=== PATIENT | male | born 1980 ===

== ENCOUNTER 2020-07-23 12:06 | Inpatient (IN) | payer MEDICAID ==
[~2020-07-23] VITALS: Ht 172.7 cm; Wt 113.4 kg
[~2020-07-23 12:06] MED LIST: AMLO-211 PO; DIVA-61 PO; DIVA500T17 PO; LISI5TAB7 PO; QUET100T PO; QUET25TA7 PO; RISP50DI IM; SIMV20TA19 PO; TRIA15CR61 TP
[2020-07-23 12:49] VITALS: BP 143/81
[2020-07-23] MEDS ORDERED: ACETAMINOPHEN 325 MG TABLET PO PRN (13:00)
[2020-07-23] MEDS ORDERED: ONDANSETRON ODT 4 MG PO PRN (13:00)
[2020-07-23] MEDS ORDERED: BISACODYL 10 MG SUPP PR PRN (13:00)
[2020-07-23] MEDS ORDERED: DOCUSATE 100 MG CAPSULE PO PRN (13:00)
[2020-07-23] MEDS ORDERED: POLYETHYLENE GLYCOL 17 GM PACKET PO PRN (13:00)
[2020-07-23] MEDS ORDERED: PLEASE ENTER HEIGHT AND WEIGHT MC SCH (13:00)
[2020-07-23] MEDS: NICOTINE 14MG/24 HR PATCH.TD24 TD SCH (14:04)
[2020-07-23 14:41] LABS: BASOPHILS % (AUTO) 1 % (0-1); EOSINOPHILS % (AUTO) 2 % (1-7); LYMPHOCYTES % (AUTO) 32 % (22-44); MEAN CORPUSCULAR HEMOGLOBIN 30.4 pg (27.5-34.5); MEAN CORPUSCULAR HGB CONC 34.2 g/dL (33.2-36.2); MEAN PLATELET VOLUME 8.1 fL (7.4-10.4); MONOCYTES % (AUTO) 10 % (2-9); NEUTROPHILS % (AUTO) 55 % (42-75); PLATELET COUNT 215 x10^3/uL (130-400); RED BLOOD COUNT 4.83 x10^6/uL (4.38-5.82); RED CELL DISTRIBUTION WIDTH 13.8 % (9.4-14.8)
[2020-07-23 14:43] LABS: MD NO
[2020-07-23 14:48] LABS: ALANINE AMINOTRANSFERASE 67 U/L (12-78); ALBUMIN 3.3 g/dL (3.4-5.0); ANION GAP 5 mmol/L (5-15); CALCIUM 8.3 mg/dL (8.5-10.1); CHLORIDE 109 mmol/L (98-107); CREATININE 0.83 mg/dL (0.7-1.3)
[2020-07-23 14:50] LABS: ALKALINE PHOSPHATASE 116 U/L (45-117); BILIRUBIN,TOTAL 0.6 mg/dL (0.2-1.0); TOTAL PROTEIN 6.6 g/dL (6.4-8.2)
[2020-07-23 19:36] VITALS: BP 171/99
[2020-07-23] MEDS ORDERED: QUETIAPINE 200 MG TABLET PO SCH (21:00)
[2020-07-23 22:35] VITALS: BP 158/91
[2020-07-24 05:50] VITALS: BP 127/83
[2020-07-24 06:53] LABS: FREE T4 (FREE THYROXINE) 1.1 ng/dL (0.76-1.46)
[2020-07-24 07:53] VITALS: BP 161/84
[2020-07-24 10:18] VITALS: BP 136/91
[2020-07-24] MEDS: AMLODIPINE 10 MG TAB PO SCH (10:33)
[2020-07-24] MEDS: NICOTINE 14MG/24 HR PATCH.TD24 TD SCH (10:34)
[2020-07-24 15:38] LABS: MICROSCOPIC NOT IND
[2020-07-24 19:57] VITALS: BP 157/94
[2020-07-24] MEDS: RISPERIDONE 1 MG TABLET PO SCH (20:01)
[2020-07-25 07:00] VITALS: BP 129/84
[2020-07-25] MEDS: RISPERIDONE 1 MG TABLET PO SCH ×2 (08:54→20:04)
[2020-07-25] MEDS: AMLODIPINE 10 MG TAB PO SCH (08:55)
[2020-07-25] MEDS: NICOTINE 14MG/24 HR PATCH.TD24 TD SCH (08:57)
[2020-07-25 20:01] VITALS: BP 147/90
[2020-07-25] MEDS: CARBAMAZEPINE 200 MG TABLET PO SCH (20:04)
[2020-07-26 07:29] VITALS: BP 147/88
[2020-07-26] MEDS: RISPERIDONE 1 MG TABLET PO SCH (09:15)
[2020-07-26] MEDS: CARBAMAZEPINE 200 MG TABLET PO SCH ×2 (09:15→20:08)
[2020-07-26] MEDS: NICOTINE 14MG/24 HR PATCH.TD24 TD SCH (09:15)
[2020-07-26] MEDS: AMLODIPINE 10 MG TAB PO SCH (09:15)
[2020-07-26 19:00] VITALS: BP 132/72
[2020-07-27 07:27] VITALS: BP 136/88
[2020-07-27] MEDS: AMLODIPINE 10 MG TAB PO SCH (08:17)
[2020-07-27] MEDS: NICOTINE 14MG/24 HR PATCH.TD24 TD SCH (08:17)
[2020-07-27] MEDS: CARBAMAZEPINE 200 MG TABLET PO SCH ×2 (08:17→21:01)
[2020-07-27] MEDS: PALIPERIDONE 6 MG TAB.ER.24 PO SCH (08:17)
[2020-07-27 19:22] VITALS: BP 111/72
[2020-07-28 07:34] VITALS: BP 109/67
[2020-07-28] MEDS: AMLODIPINE 10 MG TAB PO SCH (08:39)
[2020-07-28] MEDS: PALIPERIDONE 6 MG TAB.ER.24 PO SCH (08:40)
[2020-07-28] MEDS: CARBAMAZEPINE 200 MG TABLET PO SCH (08:40)
[2020-07-28] MEDS: NICOTINE 14MG/24 HR PATCH.TD24 TD SCH (08:42)
[2020-07-28] MEDS ORDERED: FLU VACC QS2020-21(6MOS UP)/PF 60MCG/0.5 ML SYR IM ONE (09:00)
[2020-07-28] MEDS ORDERED: AMLO-211 PO (10:53)
[2020-07-28] MEDS ORDERED: NICO-486 TD (10:54)
[2020-07-28] MEDS ORDERED: CARB200T4 PO (10:54)
[2020-07-28] MEDS ORDERED: PALI6TAB5 PO (10:54)
== END 2020-07-28 11:40 | disposition home or self-care (01) | DRG 750 ==
LOC: 3E 12:43
PROVIDERS: ADMIT Psychiatry & Neurology Psychosomatic Medicine; ATTEND Psychiatry & Neurology Psychosomatic Medicine
DX: F20.0 Paranoid schizophrenia (principal); E66.9 Obesity, unspecified; F17.200 Nicotine dependence, unspecified, uncomplicated; I10 Essential (primary) hypertension; K02.9 Dental caries, unspecified; Z68.38 Body mass index [BMI] 38.0-38.9, adult; Z79.899 Other long term (current) drug therapy; Z23 Encounter for immunization; Z72.89 Other problems related to lifestyle
CPT/HCPCS: 36415; 71045; 80053; 80061; 81003; 84439; 84443; 85025; 90686; 93005

== ENCOUNTER 2020-08-29 11:16 | Emergency (ER) | payer MEDICAID ==
[~2020-08-29] VITALS: Ht 177.8 cm; Wt 123.0 kg
[~2020-08-29 11:16] MED LIST changes: +CARB200T4 PO; +NICO-486 TD; +PALI6TAB5 PO
[2020-08-29 11:19] VITALS: BP 135/80
--- NOTE | 2020-08-29 11:35 | NUR ---
PT CAME IN CO OF RIGHT ANKLE/FOOT PAIN. PT STATES HE SLIPPED AND FELL ON SOME ICE. "I THINK ITS BROKEN"
[2020-08-29] MEDS ORDERED: OXYcodone/APAP 5/325MG TABLET ONE (11:42)
[2020-08-29] MEDS ORDERED: OXYcodone/APAP 5/325MG TABLET PO ONE (12:00)
== END 2020-08-29 13:41 | disposition home or self-care (01) ==
LOC: ED 13:07
DX: S82.844A Nondisplaced bimalleolar fracture of right lower leg, initial encounter for closed fracture (principal); S82.854A Nondisplaced trimalleolar fracture of right lower leg, initial encounter for closed fracture; W19.XXXA Unspecified fall, initial encounter; Y93.01 Activity, walking, marching and hiking; Y92.098 Other place in other non-institutional residence as the place of occurrence of the external cause; Y99.8 Other external cause status
CPT/HCPCS: 29505; 99284

== ENCOUNTER 2020-11-30 01:05 | Emergency (ER) | payer MEDICAID ==
[~2020-11-30] VITALS: Ht 180.3 cm; Wt 109.1 kg
[2020-11-30 01:12] VITALS: BP 157/101
== END 2020-11-30 01:50 | disposition home or self-care (01) ==
LOC: ED 01:48
DX: F22 Delusional disorders (principal)
CPT/HCPCS: 99283

== ENCOUNTER 2020-12-03 01:31 | Emergency (ER) | payer MEDICAID ==
[~2020-12-03] VITALS: Ht 180.3 cm; Wt 123.0 kg
[2020-12-03 01:46] VITALS: BP 143/87
--- NOTE | 2020-12-03 03:45 | NUR ---
PT AMBULATED TO ROOM. NO DISTRESS. MD TO BEDSIDE TO EVAL PT.
--- NOTE | 2020-12-03 04:15 | NUR ---
F/U AND D/C INSTRUCTIONS GIVEN TO PT AND HE V/U.
== END 2020-12-03 04:35 | disposition home or self-care (01) ==
LOC: ED 01:45
DX: Z00.00 Encounter for general adult medical examination without abnormal findings (principal)
CPT/HCPCS: 99281

== ENCOUNTER 2020-12-25 05:07 | Emergency (ER) | payer MEDICAID ==
[~2020-12-25] VITALS: Ht 175.3 cm; Wt 125.0 kg
[2020-12-25 05:20] VITALS: BP 160/87
== END 2020-12-25 06:06 | disposition home or self-care (01) ==
LOC: ED 06:00
DX: S80.211A Abrasion, right knee, initial encounter (principal); Z72.9 Problem related to lifestyle, unspecified; W01.0XXA Fall on same level from slipping, tripping and stumbling without subsequent striking against object, initial encounter; Y93.89 Activity, other specified; Y92.89 Other specified places as the place of occurrence of the external cause; Y99.8 Other external cause status
CPT/HCPCS: 99283

== ENCOUNTER 2020-12-27 02:58 | Emergency (ER) | payer MEDICAID ==
[~2020-12-27] VITALS: Ht 175.3 cm; Wt 127.0 kg
[2020-12-27] MEDS ORDERED: ZIPRASIDONE 20 MG INJ IM ONE ×2 (03:25→03:30)
[2020-12-27 03:34] LABS: BASOPHILS % (AUTO) 1 % (0-1); EOSINOPHILS % (AUTO) 3 % (1-7); LYMPHOCYTES % (AUTO) 30 % (22-44); MEAN CORPUSCULAR HEMOGLOBIN 30.5 pg (27.5-34.5); MEAN CORPUSCULAR HGB CONC 34.6 g/dL (33.2-36.2); MEAN PLATELET VOLUME 7.5 fL (7.4-10.4); MONOCYTES % (AUTO) 11 % (2-9); NEUTROPHILS % (AUTO) 57 % (42-75); PLATELET COUNT 256 x10^3/uL (130-400); RED BLOOD COUNT 5.16 x10^6/uL (4.38-5.82); RED CELL DISTRIBUTION WIDTH 14.4 % (9.4-14.8)
[2020-12-27 03:35] LABS: MD NO
[2020-12-27 03:42] LABS: ALANINE AMINOTRANSFERASE 35 U/L (12-78); ALBUMIN 3.5 g/dL (3.4-5.0); ANION GAP 6 mmol/L (5-15); CALCIUM 8.4 mg/dL (8.5-10.1); CHLORIDE 110 mmol/L (98-107); CREATININE 0.75 mg/dL (0.7-1.3); SALICYLATE LEVEL 2.1 mg/dL (2.8-20.0)
[2020-12-27 03:45] LABS: ALKALINE PHOSPHATASE 108 U/L (45-117); BILIRUBIN,TOTAL 0.6 mg/dL (0.2-1.0); TOTAL PROTEIN 7.3 g/dL (6.4-8.2)
[2020-12-27 05:15] VITALS: BP 143/74
== END 2020-12-27 05:26 | disposition home or self-care (01) ==
LOC: ED 03:37
DX: F15.150 Other stimulant abuse with stimulant-induced psychotic disorder with delusions (principal); F20.9 Schizophrenia, unspecified; Z72.9 Problem related to lifestyle, unspecified; R00.0 Tachycardia, unspecified; F17.210 Nicotine dependence, cigarettes, uncomplicated; Z91.14 Patient's other noncompliance with medication regimen
CPT/HCPCS: 36415; 80053; 80299; 80320; 80329; 85025; 96372; 99283; 99406; J3486; G0480

== ENCOUNTER 2021-01-03 04:30 | Emergency (ER) | payer MEDICAID ==
[~2021-01-03] VITALS: Ht 175.3 cm; Wt 110.0 kg
--- NOTE | 2021-01-03 04:39 | NUR ---
PT HAS C/O BEING HUNGEY AND WANTING A PLACE TO STAY PER PT. PT AMBULATED TO ROOM BY EMS, PT HAS EQUAL AND UNLABORED BREATHS. PT REQUESTING BLANKET AND FOOD. PT ON MONITOR WITH PT VSS
--- NOTE | 2021-01-03 06:07 | NUR ---
PT RESTING IN BED, PT ON MONITOR WITH PT VSS. PT DENIED ANY CURRENT WANTS OR NEEDS
--- NOTE | 2021-01-03 06:51 | NUR ---
CARE TRANSFERED TO CARLOS KEYES
--- NOTE | 2021-01-03 07:01 | NUR ---
ASSUMED CARE OF PT. PT IS SLEEPING ON TERE ARANDA, CALL LIGHT W/IN REACH.
--- NOTE | 2021-01-03 07:57 | NUR ---
PT TO SLEEPING ON SIDE, LAYING IN GURNEY.
[2021-01-03 09:18] VITALS: BP 107/87
== END 2021-01-03 09:20 | disposition home or self-care (01) ==
LOC: ED 05:28
DX: R41.82 Altered mental status, unspecified (principal); Z59.0 Homelessness
CPT/HCPCS: 99283